=== PATIENT | female | born 1990 | race African-American/Black ===

== ENCOUNTER 2019-02-04 16:00 | Emergency (ER) | payer SELFPAY, OTHER ==
[2019-02-04] MEDS ORDERED: LIDOCAINE 2%/EPI MPF (SDV) 20 ML VIAL INJ (16:16)
[2019-02-04] MEDS: ONDANSETRON 4 MG INJ IV (16:24)
[2019-02-04] MEDS: HYDROmorphONE 2 MG/ML SYG IV (16:24)
[2019-02-04] MEDS: DIPHTH/TET/ACEL PERTUSS (ADULT) 0.5 ML VIAL IM* (16:32)
[2019-02-04] MEDS: LIDOCAINE 2%/EPI (MDV) 20ML INJ INJ (17:39)
[2019-02-04] MEDS: BACITRACIN 0.9 GM OINT TOP (17:52)
[2019-02-04] MEDS: HYDROCODONE/APAP (10/325) TAB PO (18:28)
== END 2019-02-04 18:30 | disposition home or self-care (01) ==
LOC: E/R 16:00
DX: S66.021A Laceration of long flexor muscle, fascia and tendon of right thumb at wrist and hand level, initial encounter (principal); S66.120A Laceration of flexor muscle, fascia and tendon of right index finger at wrist and hand level, initial encounter; V43.52XA Car driver injured in collision with other type car in traffic accident, initial encounter; Z23 Encounter for immunization
CPT/HCPCS: 12004; 73130-RT; 90471; 90715; 96374; 96375; 99284-25